=== PATIENT | female | born 1965 | race Caucasian/White ===

== ENCOUNTER → 2018-02-17 | Outpatient (CLI) | payer OTHER | LOC: M WHC 10:48 | DX: Z12.31 Encounter for screening mammogram for malignant neoplasm of breast (principal); N60.31 Fibrosclerosis of right breast; N60.32 Fibrosclerosis of left breast | CPT/HCPCS: 77067 ==

== ENCOUNTER 2019-05-11 12:35 | Emergency (ER) | payer OTHER ==
[~2019-05-11] VITALS: Ht 170.2 cm; Wt 109.5 kg
[2019-05-11] MEDS ORDERED: MINO100C4 (12:41)
[2019-05-11] MEDS ORDERED: FLOM0.4C39 PO (15:11)
[2019-05-11] MEDS ORDERED: NORC1TAB7 PO (15:12)
[2019-05-11] MEDS ORDERED: IBUP-1022 PO (15:12)
[2019-05-11] MEDS ORDERED: NORCO 5/325MG TABLET (BULK FOR ED) PO ONE (15:15)
[2019-05-11] MEDS ORDERED: TAMSULOSIN 0.4 MG CAP PO ONE (15:15)
--- NOTE | 2019-05-11 15:18 | CR.PDOC ---
General Date of Consultation: May 11, 2019 Consultation REASON FOR CONSULTATION/CHIEF COMPLAINT: [Right obstructing ureteral calculi/flank pain ]. HISTORY OF PRESENT ILLNESS: [53 year old F transferred from [facility]. She presented with 1 day of right flank pain radiating to the abdomen, nausea and vomiting. she had a CT which shed a 3mm UPJ stone and a 4mm right UVJ stone with hydronephrosis and perinephric stranding. Afebrile, no fevers or chills. She was given Zofran and 25mcg of Fentanyl with resolution of her pain No prior history of nephrolithiasis. ]. ALLERGIES: NKA HOME MEDICATIONS: Please see below. PAST MEDICAL HISTORY: 1. [Rosacea]. 2. . PAST SURGICAL HISTORY: 1. [Hysterectomy ] 2. FAMILY HISTORY:Non contributory SOCIAL HISTORY: Non smoker. REVIEW OF SYSTEMS: CONSTITUTIONAL: [no fevers]. HEENT: [nml]. CARDIOVASCULAR: . RESPIRATORY: . GENITOURINARY: [ as HPI]. MUSCULOSKELETAL: . GASTROINTESTINAL: [ as HPI]. SKIN: . NEUROLOGICAL: . PSYCHIATRIC: . ENDOCRINE: . HEMATOLOGIC/LYMPHATIC: . ALLERGIC/IMMUNOLOGIC: . PHYSICAL EXAMINATION: VITAL SIGNS: Please see below. GENERAL APPEARANCE: [NAD]. RESPIRATORY: [normal breath sounds]. CARDIOVASCULAR: [RRR]. ABDOMEN: [soft nT ND No CVA tenderness]. EXTREMITIES: [no edema]. NEUROLOGICAL: . PSYCHIATRIC: . LABORATORY DATA: Please see below. ASSESSMENT/PLAN: 53 year old F with 3mm right proximal ureteral stone and 3mm right UVJ stone. Discussed with her at length options of Ureteral stent vs trial of passage. Since patient is now pain free and UA is negative, patient would like to opt for trial of passage. Will discharge home with Flomax 0.4mg daily, Narco/ibuprofen and strainer and told to follow up with a urologist in 2 weeks. Advised if has intractable pain, fever or chills needs to go back to the ER right away. Patient aware. -Dr Kenzie Coyle [facility] [phone] Vital Signs Date Time Temp Pulse Resp B/P (MAP) Pulse Ox O2 Delivery O2 Flow Rate FiO2 05/11/19 12:35 98.4 90 17 127/63 (84) 97 Room Air Vital Signs/I&O Vital Signs Date Time Temp Pulse Resp B/P (MAP) Pulse Ox O2 Delivery O2 Flow Rate FiO2 05/11/19 12:57 05/11/19 12:35 98.4 90 17 97 Room Air Allergies Coded Allergies: No Known Allergies (Unverified , 05/11/19) Home Medications Miscellaneous Medications Minocycline HCl (Minocycline HCl) 100 Mg Capsule, (Reported) KENZIE COYLE M.D. May 11, 2019 15:18
[2019-05-11 15:46] VITALS: BP 145/74
== END 2019-05-11 16:02 | disposition home or self-care (01) ==
LOC: M ED 12:35
DX: N13.2 Hydronephrosis with renal and ureteral calculous obstruction (principal)

== ENCOUNTER → 2019-06-08 | Outpatient (REF) | payer OTHER ==
[~2019-06-08] MED LIST: FLOM0.4C39 PO; IBUP-1022 PO; MINO100C4; NORC1TAB7 PO
== END ==
LOC: M LAB REF 12:59
PROVIDERS: ATTEND Nurse Practitioner Women's Health
DX: N20.0 Calculus of kidney (principal)

== ENCOUNTER → 2019-06-08 | Outpatient (REF) | payer OTHER ==
[2019-06-08 13:32] LABS: APPEARANCE, URINE HAZY (CLEAR); BACTERIA, URINE AUTO NEGATIVE (NEGATIVE); BILIRUBIN, URINE AUTO NEGATIVE (NEGATIVE); BLOOD, URINE BLOOD NEGATIVE (NEGATIVE); COLOR, URINE YELLOW (YELLOW); GLUCOSE, URINE (UA) AUTO NEGATIVE (NEGATIVE); KETONE, URINE AUTO NEGATIVE (NEGATIVE); LEUKOCYTE ESTERASE, URINE AUTO 2+ (NEGATIVE); MUCUS, URINE SMALL (NEGATIVE); NITRITE, URINE AUTO NEGATIVE (NEGATIVE); PROTEIN, URINE AUTO NEGATIVE (NEGATIVE); RBC, URINE AUTO 2 /HPF (0-3); SPECIFIC GRAVITY URINE AUTO 1.016 (1.002-1.035); SQUAMOUS EPITHELIAL CELL UR AU 0 /HPF (0-6); UROBILINOGEN, URINE AUTO 0.2 mg/dL (0.0-2.0); WBC, URINE AUTO 112 /HPF (0-3)
== END ==
LOC: M SMT 12:54
PROVIDERS: ATTEND Nurse Practitioner Women's Health
DX: N20.0 Calculus of kidney (principal)

== ENCOUNTER → 2019-07-13 | Outpatient (CLI) | payer OTHER ==
--- NOTE | 2019-07-13 15:10 | REPMRS ---
Patient History The patient states she had a clinical breast exam in June 2019.Family history of prostate cancer in father. Digital Woman Screen Mammo: July 13, 2019 - Exam #: [id number] Bilateral CC and MLO view(s) were taken. Technologist: Cindy Maya, Technologist Prior study comparison: February 17, 2018, bilateral digital woman screen mammo performed at [facility]. April 02, 2015, digital woman screen mammo performed at [facility]. January 02, 2014, digital woman screen mammo performed at [facility]. FINDINGS: The breast tissue is heterogeneously dense. This may lower the sensitivity of mammography. There is a moderate amount of heterogeneously dense fibroglandular tissue which is fairly symmetric. There is no interval development of dominant mass, architectural distortion, or grouped microcalcification typical of malignancy. There has been no change in the appearance of the mammogram from the prior studies. 3-D tomosynthesis shows no additional findings. Assessment: BI-RADS/ACR category 1 mammogram. Negative Mammogram. Recommendation Routine screening mammogram of both breasts in 1 year (for women over age 40). This patient's Lifetime Breast Cancer RIsk is estimated at 11.6 %. This mammogram was interpreted with the aid of an FDA-approved computer-aided dectection system. Electronically Signed By: Flako Ricardo MD 07/13/19 9921
== END ==
LOC: M WHC 11:37
PROVIDERS: ATTEND Nurse Practitioner Family
DX: Z12.31 Encounter for screening mammogram for malignant neoplasm of breast (principal); Z80.42 Family history of malignant neoplasm of prostate